=== PATIENT | male | born 1950 | race Hispanic/Latino ===

== ENCOUNTER → 2017-07-17 | Outpatient (CLI) | payer OTHER ==
[~2017-07-17] MED LIST: DONE5TAB26 PO; FERS325 PO; FINA5TAB41 PO; FOLI1TAB15 PO; FURO20TA4 PO; ISOS60TA4 PO; LISI-617 PO; METO50TA18 PO; OMEP40CA37 PO; SUCR1TAB2 PO
== END | disposition home or self-care (01) ==
LOC: RAH 07:25
PROVIDERS: ATTEND Internal Medicine Gastroenterology
DX: K80.20 Calculus of gallbladder without cholecystitis without obstruction (principal); K74.69 Other cirrhosis of liver; R16.1 Splenomegaly, not elsewhere classified
CPT/HCPCS: 76700